=== PATIENT | female | born 1985 | race Caucasian/White ===

== ENCOUNTER 2022-06-30 10:50 | Outpatient (CLI) | payer MEDICAID, SELFPAY ==
--- OUTSIDE RECORDS SUMMARY | 2022-06-30 10:52 | XMS_ITS | Clinical Summary ---
:1985 Author Organization [facility] ian Affiliates [place] [address] Care Team Providers Name Role Phone Pcp, No Primary Care Provider Unavailable Prashanth Landers MD Unavailable Unavailable Allergies No known active allergies Medications Medication Sig Dispensed Refills Start Date End Date Status acetaminophen Take by mouth every 0 10/24/2017 Active (TYLENOL) 325 mg 4 hours if needed. tablet Max acetaminophen dose: 4000mg in 24 hrs. famotidine (PEPCID) 0 10/22/2017 Active 20 mg tablet VITAMIN B-6 25 mg 0 10/22/2017 A ctive tablet Active Problems Estimated Date of Delivery Comments Yes 03/09/2018 No additional problems on file Social History Tobacco Use Types Packs/Day Years Used Date Never Smoker Smokeless Tobacco: Never Used Tobacco Cessation: Counseling Given: Yes Alcohol Use Standard Drinks/Week Comments No 0 (1 standard drink = 0.6 oz pure alcoho l) Estimated Date of Delivery Comments Yes 03/09/2018 Sex Assigned at Date Recorded Not on file Obstetrics History Para Term AB IAB SAB Ectopic Multiple Living Live Births 6 5 5 Date Outcome GA Total Labor/2nd/3rd Weight Sex Delivery Anes PTL Monica A 1 A5 Name Clin Labor Term Term Term Term Term Current Last Filed Vital Signs Vital Sign Reading Time Taken Comments Blood Pressure 137/101 08/26/2020 7:46 PM BAKERY CHEF Pulse 90 08/26/2020 7:44 PM BAKERY CHEF Temperature 36.8 ??C (98.3 ??F) 08/26/2020 7:44 PM BAKERY CHEF Respiratory Rate 18 08/26/2020 7:44 PM BAKERY CHEF Oxygen Saturation 100% 08/26/2020 7:44 PM BAKERY CHEF Inhaled Oxygen Concentration - - Weight 94.8 kg (209 lb) 08/26/2020 7:44 PM BAKERY CHEF Height 152.4 cm (5') 08/26/2020 7:44 PM BAKERY CHEF Body Mass Index 40.82 08/26/2020 7:44 PM BAKERY CHEF Plan of Treatment Health Maintenance Due Date Last Done Comments COVID-19 vaccine series (#1) 1987 Tdap 1998 Hepatitis C screening for age 18-79 2005 Tetanus booster 2007 BMI (ht and wt on same day) for age 18+ 10/24/2018 10/24/19 18 Depression screening for age 12+ 10/24/2018 10/24/2017 Pap test for age 21-65 09/04/2020 09/04/2017, 09/04/2017 Influenza for age 9-49 06/08/2022 Results Not on filefrom Last 3 Months Insurance Payer Benefit Plan / Subscriber ID Effective Dates Phone Addre ss Type Group LAURY SCHAEFFER MA [id number] 2020-Present [address] [place] [address] [address] MONZON Merritt,Kateryna (Home) JESUS PAEZ [id number] [employer] Employer 10/08/[address] [place] (Home) DEPT [id number] [place] [phone] [facility] Naida GUPTA (Work) [place]US [place]URA [id number] Care Teams Asphalt Roller Person Relationship Specialty Start Date End Date Pcp, No PCP - General 09/01/19 . Prashanth Landers MD Family Practice 09/01/19
[2022-06-30 14:38] LABS: Chlamydia DNA Amplified* Not Detected (No Detected); GC DNA Amplified* Not Detected (No Detected)
== END 2022-06-30 10:51 | disposition home or self-care (01) ==
PROVIDERS: Visit Provider Physician Assistant
DX: Z01.419 Encounter for gynecological examination (general) (routine) without abnormal findings (principal); N89.8 Other specified noninflammatory disorders of vagina; Z12.4 Encounter for screening for malignant neoplasm of cervix; F41.9 Anxiety disorder, unspecified
CPT/HCPCS: 87491; 87591; 87624; 88175

== ENCOUNTER 2022-07-17 11:07 | Outpatient (CLI) | payer MEDICAID, SELFPAY ==
[2022-07-17 13:59] LABS: Albumin* 4.4 g/dL (3.3-5.0); Chloride* 102 mmol/L (96-114); Sodium* 137 mmol/L (135-149)
[2022-07-17 14:00] LABS: Potassium* 4.8 mmol/L (3.6-5.1)
[2022-07-17 14:02] LABS: Alanine Aminotransferase* 30 U/L (4-35); Alkaline Phosphatase* 97 U/L (40-150); Aspartate Amino Transferase* 26 U/L (12-35); Bilirubin Total* 0.3 mg/dL (0.1-1.5); Blood Urea Nitrogen* 8 mg/dL (5-24); Carbon Dioxide* 25 mmol/L (20-32); Cholesterol* 178 mg/dL (90-199); Creatinine* 0.5 mg/dL (0.5-1.5); Estimated Glomerular Filt Rate 125 ml/min; Glucose* 97 mg/dL (60-115); Total Protein* 7.5 g/dL (6.0-8.3); Triglycerides* 127 mg/dL (40-149)
[2022-07-17 14:03] LABS: Calcium* 9.2 mg/dL (8.4-10.6); HDL Cholesterol* 44 mg/dL (>=50); LDL Cholesterol Calculated 109 mg/dL (<100)
== END 2022-07-17 11:08 | disposition home or self-care (01) ==
PROVIDERS: Visit Provider Family Medicine
DX: F32.A Depression, unspecified (principal); R53.83 Other fatigue; E78.5 Hyperlipidemia, unspecified
CPT/HCPCS: 80053; 80061; 84443

== ENCOUNTER 2022-07-28 10:58 | Outpatient (CLI) | payer MEDICAID, SELFPAY ==
--- NOTE | 2022-07-28 11:00 | CRLHL7_ITS ---
For Patients: As a result of the Century Cures Act, medical imaging exams and procedure reports are released immediately into your electronic medical record. You may view this report before your referring provider. If you have questions, please contact your health care provider. INDICATION: right knee pain COMPARISON: None. TECHNIQUE: A compression venous ultrasound exam was performed of the right lower extremity using guerra-scale imaging, color Doppler and spectral Doppler analysis. FINDINGS: Sonographic imaging of the right lower extremity demonstrates normal compressibility and color Doppler venous blood flow within the common femoral vein, deep femoral vein, and the proximal greater saphenous vein. Within the thigh, the femoral vein is patent and compressible. At a lower level, the popliteal and posterior tibial veins also show normal compressibility and color Doppler venous blood flow. Limited imaging of the contralateral groin demonstrates a normal spectral waveform and color Doppler venous blood flow within the left common femoral vein. IMPRESSION: Normal venous ultrasound exam. No evidence of deep vein thrombosis within the right lower extremity. Dictated by Prashanth Jose MD @ 07/28/2022 11:44:24 AM (Electronically Signed)
--- OUTSIDE RECORDS SUMMARY | 2022-07-28 11:01 | XMS_ITS | Clinical Summary ---
:1985 Author Organization [employer] [facility] [employer] ian Affiliates Address [place] [address] Care Team Providers Name Role Phone Pcp, [...] Comments Blood Pressure 137/101 08/26/2020 7:46 PM NETWORK CONTROLLER Pulse 90 08/26/2020 7:44 PM NETWORK CONTROLLER Temperature 36.8 ??C (98.3 ??F) 08/26/2020 7:44 PM NETWORK CONTROLLER Respiratory Rate 18 08/26/2020 7:44 PM NETWORK CONTROLLER Oxygen Saturation 100% 08/26/2020 7:44 PM NETWORK CONTROLLER Inhaled Oxygen Concentration - - Weight 94.8 kg (209 lb) 08/26/2020 7:44 PM NETWORK CONTROLLER Height 152.4 cm (5') 08/26/2020 7:44 PM NETWORK CONTROLLER Body Mass Index 40.82 08/26/2020 7:44 PM NETWORK CONTROLLER Plan of Treatment Health Maintenance Due Date [...] Addre ss Type Group LAURY SCHAEFFER MA [id number] 2020-Present [address] [place] [address] [address] MONZON Merritt,Kateryna (Home) JESUS PAEZ [id number] [employer] Employer 10/08/2000 [address] [place] (Home) DEPT [id number] [place] [phone] [facility] Naida GUPTA (Work) [place]UR[place] [id number] Care Teams Cereal Maker Relationship Specialty Start Date End Date Pcp, No PCP - General 09/01/19 . Prashanth Landers MD Family Practice 09/01/19
== END 2022-07-28 10:59 | disposition home or self-care (01) ==
PROVIDERS: PCP Family Medicine; Visit Provider Family Medicine
DX: M79.604 Pain in right leg (principal)
CPT/HCPCS: 93971

== ENCOUNTER 2022-10-27 08:52 | Outpatient (CLI) | payer MEDICAID, SELFPAY | END 2022-10-27 08:53 | disposition home or self-care (01) | LOC: NFLDREF 08:54 | PROVIDERS: PCP Family Medicine; Visit Provider Family Medicine | DX: R30.0 Dysuria (principal) | CPT/HCPCS: 87086 ==

== ENCOUNTER 2022-11-14 16:22 | Emergency (ER) | payer MEDICAID, SELFPAY ==
[2022-11-14] VITALS (7 sets, daily range): BP systolic 123–144; BP diastolic 77–99; PULSE 106–112; RESP 20; TEMP 36.7; O2SAT 98–100; BMI 45.3
--- NOTE | 2022-11-14 16:51 | CRLHL7_ITS ---
For Patients: As a result of the Century Cures Act, medical imaging exams and procedure reports are released immediately into your electronic medical record. You may view this report before your referring provider. If you have questions, please contact your health care provider. INDICATION: Left abdominal pain. TECHNIQUE: CT abdomen and pelvis without contrast. COMPARISON: None. FINDINGS: Lower chest: Scattered atelectasis. Moderate hiatal hernia. Liver: Hepatomegaly/hepatic steatosis. Gallbladder and bile ducts: Cholecystectomy. Pancreas: Unremarkable. No mass or inflammation. Spleen: Normal in size. No masses. Adrenal glands: Normal in size. No nodules. Kidneys: Normal in size. No suspicious masses, stones, or hydronephrosis. GI tract: Mild colonic stool burden. Normal in caliber. No sign of mass or inflammation. Vasculature: Abdominal aorta is normal in caliber. Lymph nodes: No lymphadenopathy. Peritoneum/Abdominal Wall: Tiny fat containing umbilical hernia. Focal area of fatty necrosis adjacent to the descending colon (series 2/image 97). No free air or significant free fluid. Pelvis: Unremarkable. No pelvic masses. Bones: Unremarkable for age. IMPRESSION: Tiny focal area of fatty necrosis adjacent to the descending colon, likely suggestive of focal fat infarction, including epiploic appendagitis. Mild colonic stool burden. Hepatomegaly/hepatic steatosis. Please note that all CT scans at this facility use dose modulation, iterative reconstruction, and/or weight-based dosing when appropriate to reduce radiation dose to as low as reasonably achievable. Dictated by Faraz Smith MD @ 11/14/2022 6:14:05 PM (Electronically Signed)
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
[2022-11-14] MEDS: 0.9 % SODIUM CHLORIDE 500 ML 500 ML IV (17:17)
[2022-11-14 17:19] LABS: Basophils Absolute Auto 0.03 K/uL (0.00-0.30); Basophils Percent Auto 0.3 % (0.0-3.0); Hematocrit 40.1 % (33.0-51.0); Hemoglobin* 13.3 gm/dL (12.0-16.0); Immature Granulocytes Abs Auto 0.02 K/uL (0.00-0.30); Immature Granulocytes Pct Auto 0.2 %; Lymphocytes Percent Auto 15.2 % (20-44); Mean Corpuscular HGB Conc 33 gm/dL (32-36); Mean Corpuscular Hemoglobin 30 pg (26-34); Mean Corpuscular Volume 91 fL (80-100); Neutrophils Percent Auto 74.3 % (42.0-72.0); Platelet Count* 263 K/uL (140-440); RDW Coefficient of Variation % 12.4 % (11.5-15.5); Red Blood Count 4.43 m/uL (4.00-5.20); White Blood Count* 10.08 K/uL (4.50-11.00)
[2022-11-14] MEDS: MORPHINE 4 MG/ML INJ IVP (17:19)
[2022-11-14 17:20] LABS: Appearance Urine Clear (Clear); Bilirubin Urine Negative (Negative); Blood Urine Negative (Negative); Color Urine Yellow (Yellow); Glucose Urine Negative (Negative); Ketones Urine Negative (Negative); Leukocyte Esterase Urine Negative (Negative); Nitrite Urine Negative (Negative); Protein Urine Negative (Negative); Urobilinogen Urine 0.2 (0.2-1.0); pH Urine 5.5 (5.0-8.5)
[2022-11-14 17:21] LABS: Slide Review Reflex No
[2022-11-14 17:30] LABS: RBC Urine 0-2 (0-2); WBC Urine 0-2 (0-5)
[2022-11-14 17:32] LABS: Chloride* 105 mmol/L (96-114)
[2022-11-14 17:33] LABS: Albumin* 3.9 g/dL (3.3-5.0); Potassium* 3.9 mmol/L (3.6-5.1); Sodium* 137 mmol/L (135-149)
[2022-11-14 17:35] LABS: Amylase* 81 U/L (18-89)
[2022-11-14 17:36] LABS: Alanine Aminotransferase* 44 U/L (4-35); Alkaline Phosphatase* 86 U/L (40-150); Aspartate Amino Transferase* 26 U/L (12-35); Bilirubin Direct* 0.2 mg/dL (0.0-0.5); Bilirubin Total* 0.5 mg/dL (0.1-1.5); Blood Urea Nitrogen* 11 mg/dL (5-24); Calcium* 8.8 mg/dL (8.4-10.6); Carbon Dioxide* 28 mmol/L (20-32); Creatinine* 0.8 mg/dL (0.5-1.5); Est. Creatinine Clearance* 74.07; Estimated Glomerular Filt Rate 98 ml/min; Glucose* 100 mg/dL (60-115); Lipase* 192 U/L (23-300); Total Protein* 7.1 g/dL (6.0-8.3)
[2022-11-14 17:39] LABS: C Reactive Protein* 2.4 mg/dL (0.5-1.0)
[2022-11-14 17:48] LABS: HCG Qualitative Serum* Negative (Negative)
[2022-11-14 17:57] LABS: PCR FLU A Negative PCR FLU A (Negative); PCR FLU B Negative PCR FLU B (Negative); PCR RSV Negative PCR RSV (Negative)
[2022-11-14 18:00] LABS: SARS PCR* POSITIVE SARS-CoV-2 (Negative)
== END 2022-11-14 19:00 | disposition home or self-care (01) ==
PROVIDERS: Emergency Provider Family Medicine; PCP Family Medicine
DX: R10.12 Left upper quadrant pain (principal); U07.1 COVID-19
CPT/HCPCS: 36415; 74176; 80048; 80076; 81001; 82150; 83690; 84703; 85025; 86140; 87086; 87502; 87634; 87635; 96374; 99284; 99285; J2270; J7120

== ENCOUNTER 2023-01-04 11:13 | Outpatient (CLI) | payer MEDICAID, SELFPAY | END 2023-01-04 11:14 | disposition home or self-care (01) | PROVIDERS: PCP Family Medicine; Visit Provider Family Medicine | DX: E66.01 Morbid (severe) obesity due to excess calories (principal); F41.9 Anxiety disorder, unspecified; R53.83 Other fatigue | CPT/HCPCS: 80053; 84443 ==

== ENCOUNTER 2024-06-06 15:41 | Outpatient (CLI) | payer MEDICAID, SELFPAY ==
--- OUTSIDE RECORDS SUMMARY | 2024-06-06 15:44 | XMS_ITS | Clinical Summary ---
Author Organization [facility] Address [place], [place] [address] Care Team Providers Care Semiconductor Wafers Etcher Stripper Name Role Phone Pcp, No Primary Care Provider Unavailabl Prashanth Mayberry MD Unavailable Unavailab le Allergies No known active allergies Medications Medication Sig Dispensed Refills Start Date End Date Status acetaminophen (TYLENOL) 325 mg tablet Take by mouth every 4 hours if needed. Max acetaminophen dose: 4000mg in 24 hrs. 0 10/24/2017 Active famotidine (PEPCID) 20 mg tablet 10/22/2017 Active VITAMIN B-6 25 mg tablet 10/22/2017 Active Social History Tobacco Use Types Packs/Day Years Used Date Smoking Tobacco: Never Smokeless Tobacco: Never Tobacco Cessation:Counseling Given: Yes Alcohol Use Standard Drinks/Week Comments No 0 (1 standard drink = 0.6 oz pur e alcohol) Estimated Date of Delivery Comme nts Yes 03/09/2018 Sex and Gender Information Value Date Recorded Sex Assigned at Not on file Gender Identity Not on file Sexual Orientation Not on file Obstetrics History Para Term AB IAB SAB Ectopic Multiple Livin g Live Births 6 5 5 Date Outcome GA Total Labor Labor/2nd/3rd Weight Sex Type Anes PTL Monica A1 A5 Name Clin Term Term Term Term Term Current Last Filed Vital Signs Vital Sign Reading Time Taken Comments Blood Pressure 137/101 08/26/2020 7:46 PM SHINGLE SAWYER Pulse 90 08/26/2020 7:44 PM SHINGLE SAWYER Temperature 36.8 ??C (98.3 ??F) 08/26/2020 7:44 PM CS T Respiratory Rate 18 08/26/2020 7:44 PM SHINGLE SAWYER Oxygen Saturation 100% 08/26/2020 7:44 PM SHINGLE SAWYER Inhaled Oxygen Concentration - - Weight 94.8 kg (209 lb) 08/26/2020 7:44 PM SHINGLE SAWYER Height 152.4 cm (5') 08/26/2020 7:44 PM SHINGLE SAWYER Body Mass Index 40.82 08/26/2020 7:44 PM SHINGLE SAWYER Plan of Treatment Health Maintenance Due Date Last Done Comments Tdap 1998 HIV for age 15-65 2002 Hepatitis C screening for ag e 18-79 2005 Tetanus booster 2007 BMI (ht and wt on same day) for age 18+ 10/24/2018 10/24/2017 Depression screening for age 12+ 10/24/2018 10/24/2017 Pap test for age 21-65 09/04/2020 7, 09/04/2017 COVID-19 vaccine series (2022- season) 2023 Influenza for age 9-49 06/08/2024 Pneumococcal series for age 6-64 Aged Out No longer eligible b ased on patient's age to complete this topic Procedures Procedure Name Priority Date/Time Associated Diagnosis Comments CAPTAIN/CHECK AIRMAN THIN PREP PAP SCREEN IMAGED Routine 09/04/2017 12:00 PM SHINGLE SAWYER from Last 3 Months or Most Recently Relevant to Health Maintenance Results * CAPTAIN/CHECK AIRMAN THIN PREP PAP SCREEN IMAGED (09/04/2017 12:00 PM SHINGLE SAWYER) Case Report Gynecologic Cytology Report ? Case: [id number] ? Authorizing Provider: ??Mallory Ramos PA-C ?Collected: ? 09/04/2017 1200 ? First Screen: ?Isaias Reilly ?Received: ?09/06/2017 1244 ? Specimen: ?CAPTAIN/CHECK AIRMAN ThinPrep Vial Screening, Cervical/Vaginal ? 09/12/2017 3:38 PM [facility] INTERPRETATION/ RESULT NEGATIVE FOR INTRAEPITHELIAL LESION OR MALIGNANCY (NIL) (none) 09/12/2017 3:38 PM [facility] ENTRIL LABORATORY IMEN ADEQUACY Satisfactory for evaluation No endocervical component seen in a patient 09/12/2017 3:38 PM SHINGLE SAWYER [facility] ENTRAL LABORATORY HPV REQUEST HPV and PAP 09/12/2017 3:38 PM [facility] ENTRAL LABORATORY Date of LMP 06/12/2017 09/12/2017 3:38 PM [facility] [place] ENTRAL LABORATORY Menstrual Status 09/12/2017 3:38 PM [facility] ENTRIL LABORATORY Automated Review Successful 09/12/2017 3:38 PM [facility] ENTRAL LABORATORY Comment:Specimen processed s uccessfully by automated bilingual spanish inbound sales device, ThinPrep Imaging System, [employer] ANCILLARY TESTING CAPTAIN/CHECK AIRMAN HPV Ordered, Please see separate report 09/12/2017 3:38 PM [facility] ENTRIL LABORATORY Note The pap test is a screening technique, not a diagnostic procedure. ??It is used primarily to screen for squamous cancers and precursor lesions. ??Published studies have shown that it is subject to both false negative and false positive results. ??The pap test should not be used as the sole means to diagnose or exclude pre-malignant and malignant lesions. Interpreted at [facility] (Central Lab, [facility], [facility], , [facility], [facility], [facility]) 09/12/2017 3:38 PM [facility] ENTRIL LABORATORY Other (Cervical/Vagina l) 09/04/2017 12:00 PM SHINGLE SAWYER 09/06/2017 12:44 PM SHINGLE SAWYER Mallory Ramos PA-C PATHOLOG[facility]AL LABORATORY [address] [place] [address], [place] from Last 3 Months or Most Recently Relevant to Health Maintenance Care Teams Semiconductor Wafers Etcher Stripper Relationship Specialty Start Date End Date Pcp, No . PCP - General 09/01/19 Prashanth Landers MD . Family Practice 09/01/19
== END 2024-06-06 15:42 | disposition home or self-care (01) ==
PROVIDERS: PCP Family Medicine; Visit Provider Registered Nurse
DX: E66.01 Morbid (severe) obesity due to excess calories (principal); F32.A Depression, unspecified; F41.1 Generalized anxiety disorder
CPT/HCPCS: 80053; 84443

== ENCOUNTER 2024-07-17 10:39 | Outpatient (CLI) | payer MEDICAID, SELFPAY ==
--- OUTSIDE RECORDS SUMMARY | 2024-07-17 10:45 | XMS_ITS | Clinical Summary ---
Author Organization [facility] Address [place], [place] [address] Care Team Providers Care Investment Banking Associate Name Role Phone Pcp, No Primary Care [...] VITAMIN B-6 25 mg tablet 10/22/2017 Active Encounters Date Type Department Care Team Description 07/05/2024 Transcribe Orders [facility] [id number] [place] [id number] Tia Guerrero NP from Last 3 Months Social History Tobacco Use Types Packs/Day Years [...] Comments Blood Pressure 137/101 08/26/2020 7:46 PM ON AIR ANNOUNCER Pulse 90 08/26/2020 7:44 PM ON AIR ANNOUNCER Temperature 36.8 ??C (98.3 ??F) 08/26/2020 7:44 PM CS T Respiratory Rate 18 08/26/2020 7:44 PM ON AIR ANNOUNCER Oxygen Saturation 100% 08/26/2020 7:44 PM ON AIR ANNOUNCER Inhaled Oxygen Concentration - - Weight 94.8 kg (209 lb) 08/26/2020 7:44 PM ON AIR ANNOUNCER Height 152.4 cm (5') 08/26/2020 7:44 PM ON AIR ANNOUNCER Body Mass Index 40.82 08/26/2020 7:44 PM ON AIR ANNOUNCER Plan of Treatment Health Maintenance Due Date Last Done Comments Tdap 1998 HIV for age 15-65 2002 Hepatitis C screening for ag e 18-79 2005 Tetanus booster 2007 BMI (ht and wt on same day) for age 18+ 10/24/2018 10/24/2017 Depression screening for age 12+ 10/24/2018 10/24/2017 Pap test for age 21-65 09/04/2020 7, 09/04/2017 COVID-19 vaccine series (2023- season) 2024 Influenza for age 9-49 06/08/2024 RSV vaccine for adults or (1 - 1-dose 75+ series) 2062 Pneumococcal series for age 6-64 Aged Out No longer eligible b ased on patient's age to complete this topic Procedures Procedure Name Priority Date/Time Associated Diagnosis Comments [employer] THIN PREP PAP SCREEN IMAGED Routine 09/04/2017 12:00 PM ON AIR ANNOUNCER from Last 3 Months or Most Recently Relevant to Health Maintenance Results * [employer] THIN PREP PAP SCREEN IMAGED (09/04/2017 12:00 PM ON AIR ANNOUNCER) Case Report Gynecologic Cytology Report ? Case: [id number] ? Authorizing Provider: ??Mallory Ramos PA-C ?Collected: ? 09/04/2017 1200 ? First Screen: ?Isaias Reilly ?Received: ?09/06/2017 1244 ? Specimen: ?[employer] ThinPrep Vial Screening, Cervical/Vaginal ? 09/12/2017 3:38 PM [facility] INTERPRETATION/ RESULT NEGATIVE FOR INTRAEPITHELIAL LESION OR MALIGNANCY (NIL) (none) 09/12/2017 3:38 PM [facility] IMEN ADEQUACY Satisfactory for evaluation No endocervical component seen in a patient 09/12/2017 3:38 PM [facility] HPV REQUEST HPV and PAP 09/12/2017 3:38 PM [facility] Date of LMP 06/12/2017 09/12/2017 3:38 PM [facility] Menstrual Status 09/12/2017 3:38 PM [facility] Automated Review Successful 09/12/2017 3:38 PM [facility] Comment:Specimen processed s uccessfully by automated focuser device, ThinPrep Imaging System, [employer] ANCILLARY TESTING [employer] HPV Ordered, Please see separate report 09/12/2017 3:38 PM [facility] Note The pap test is a screening technique, not a diagnostic procedure. ??It is used primarily to screen for squamous cancers and precursor lesions. ??Published studies have shown that it is subject to both false negative and false positive results. ??The pap test should not be used as the sole means to diagnose or exclude pre-malignant and malignant lesions. Interpreted at [facility] ([facility], [facility], [facility], [facility], [facility], [facility], [facility]) 09/12/2017 3:38 PM [facility] Other (Cervical/Vagina l) 09/04/2017 12:00 PM ON AIR ANNOUNCER 09/06/2017 12:44 PM ON AIR ANNOUNCER January Rachel CLANCY PATHOLOGY/CYTOLOGY [facility] [address] [place] [address], from Last 3 Months or Most Recently Relevant to Health Maintenance Care Teams Investment Banking Associate Relationship Specialty Start Date End Date Pcp, No . PCP - General 09/01/19 Prashanth Landers MD . Family Practice 09/01/19
[2024-07-17 14:38] LABS: Chlamydia DNA Amplified* NOT DETECTED (No Detected); GC DNA Amplified* NOT DETECTED (No Detected)
[2024-07-19 05:17] LABS: HPV Source Cervix; HPV, High Risk by TMA Detected
[2024-07-20 15:02] LABS: HPV Genotype 16 by TMA Not Detected; HPV Genotype 18/45 by TMA Not Detected; HPV Reflex Billing Y; HPVG Source Cervix
== END 2024-07-17 10:40 | disposition home or self-care (01) ==
PROVIDERS: Visit Provider Physician Assistant
DX: N92.6 Irregular menstruation, unspecified (principal); Z12.4 Encounter for screening for malignant neoplasm of cervix; Z11.3 Encounter for screening for infections with a predominantly sexual mode of transmission; Z13.220 Encounter for screening for lipoid disorders; Z13.1 Encounter for screening for diabetes mellitus; Z11.4 Encounter for screening for human immunodeficiency virus [HIV]; Z11.59 Encounter for screening for other viral diseases
CPT/HCPCS: 80061; 82947; 84146; 84443; 86592; 86703; 86803; 87340; 87491; 87591; 87624; 87625; 88141; 88142

== ENCOUNTER 2024-09-01 10:54 | Outpatient (CLI) | payer MEDICAID, SELFPAY | END 2024-09-01 10:55 | disposition home or self-care (01) | PROVIDERS: PCP Registered Nurse; Visit Provider Registered Nurse | DX: I10 Essential (primary) hypertension (principal); E66.01 Morbid (severe) obesity due to excess calories | CPT/HCPCS: 80048 ==

== ENCOUNTER 2025-05-29 11:50 | Emergency (ER) | payer MEDICAID, SELFPAY ==
--- OUTSIDE RECORDS SUMMARY | 2025-05-29 11:53 | XMS_ITS | Clinical Summary ---
Author Organization [facility] Address [address] [place] [address] Care Team Providers Care Civil Engineer In Training Name Role Phone Pcp, No Primary Care Provider Unavailabl Prashanth Mayberry MD Unavailable Unavailab le Allergies No known active allergies Medications acetaminophen (TYLENOL) 325 mg tablet Take by mouth every 4 hours if needed. Max acetaminophen dose: 4000mg in 24 hrs. 0 8 Active famotidine (PEPCID) 20 mg tablet 8 Active VITAMIN B-6 25 mg tablet 8 Active DULoxetine (CYMBALTA) 30 mg Delayed-releas e capsule Take by mouth. 4 Active hydrOXYzine HCL (ATARAX) 25 mg tablet Take by mouth. 4 Active Social History Tobacco Use Types Packs/Day Years Used Date Smoking Tobacco: Never Smokeless Tobacco: Never Tobacco Cessation:Counseling Given: Yes Alcohol Use Standard Drinks/Week Comments No 0 (1 standard drink = 0.6 oz pur e alcohol) Comments No Sex and Gender Information Value Date Recorded Sex Assigned at Not on file Legal Sex Female 1:17 PM MEDICATION MANAGER Gender Identity Not on file Sexual Orientation Not on file Obstetrics History Para Term AB IAB SAB Ectopic Multiple Livin g Live Births 8 7 7 Date Outcome GA Total Labor Labor/2nd/3rd Weight Sex Type Anes PTL Monica A1 A5 Name Clin Term Term Term Term Term Term Term Last Filed Vital Signs Vital Sign Reading Time Taken Comments Blood Pressure 128/82 09/02/2024 10:17 AM MEDICATION MANAGER Pulse 64 09/02/2024 10:17 AM MEDICATION MANAGER Temperature 36.8 C (98.3 F) 08/26/2020 7:44 PM MEDICATION MANAGER Respiratory Rate 16 09/02/2024 10:1 7 AM MEDICATION MANAGER Oxygen Saturation 100% 08/26/2020 7:44 PM MEDICATION MANAGER Inhaled Oxygen Concentration - - Weight 111.6 kg (246 lb 1.6 oz) 024 10:17 AM MEDICATION MANAGER Height 154.9 cm (5' 1) 09/02/2024 10:1 7 AM MEDICATION MANAGER Body Mass Index 46.5 09/02/2024 10:17 AM MEDICATION MANAGER Plan of Treatment Scheduled Procedures Name Priority Associated Diagnoses Date/Ti me SURGICAL PROCEDURE (TYPE PRO CEDURE DESCRIPTION BELOW) Elective Macromastia Health Maintenance Due Date Last Done Comments Tetanus booster 1998 HIV for age 15-65 2002 Hepatitis C screening for age 18-79 2005 Hepatitis B series for 19+ (1 of 3 - 19+ 3-dose series) 2006 Depression screening for age 12+ 10/24/2018 10/24/2017 COVID-19 vaccine series ( season) 2024 Influenza Vaccine (#1) 2025 Pap test for age 21-65 06/30/2025 , 06/30/2022, 09/04/2017, Additional history exists BMI (ht and wt on same day) for age 18+ 09/02/2025 09/02/2024, 10/24/2017 Pneumococcal series for age 6-49 Aged Out No longer eligible based on patient's age to complete this topic Procedures Procedure Name Priority Date/Time Associated Diagnosis Comments HPV HIGH RISK Routine 06/30/2022 11:00 AM CDT from Last 3 Months or Most Recently Relevant to Health Maintenance Results * (ABNORMAL) HPV HIGH RISK (06/30/2022 11:00 AM CDT) TYPE 16 Negative Negative 07/04/2022 5:45 PM CDT [facility] TYPE 18 Negative Negative 07/04/2022 5:45 PM CDT [facility] OTHER HIGH RISK TYPES Positive(A) Negative 07/04/2022 5:45 PM CDT [facility] Other (Cervical) 06/30/2022 11:00 AM CDT 07/03/2022 8:24 AM CDT Narrative [facility] - 07/04/2022 5:45 PM CDT Specimen is positive for the DNA of any one of, or combination of, the following high risk HPV types: 31, 33, 35, 39, 45, 51, 52, 56, 58, 59, 66, 68. HPV types 16 and 18 DNA were undetectable or below the pre-set threshold. Methodology: [employer] Zafar 4800 HPV Test january Rachel CLANCY MICROBIOLOGY Final Resu lt [facility] [address] [place] [address], from Last 3 Months or Most Recently Relevant to Health Maintenance Insurance [facility] ATTN: [place] [address] Care Teams Civil Engineer In Training Relationship Specialty Start Date End Date Pcp, No . PCP - General 09/01/19 Prashanth Landers MD . Family Practice 09/01/19
[2025-05-29 12:13] VITALS: BP 149/96; PULSE 81; RESP 20; TEMP 36.6; O2SAT 97; BMI 48.2
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
[2025-05-29 12:31] VITALS: BP 139/91; PULSE 81; RESP 20; TEMP 36.6; O2SAT 97
[2025-05-29 13:27] LABS: Hematocrit 39.8 % (33.0-51.0); Hemoglobin* 13.1 gm/dL (12.0-16.0); Immature Granulocytes Abs Auto 0.01 K/uL (0.00-0.30); Immature Granulocytes Pct Auto 0.1 %; Lymphocytes Absolute Auto 2.58 K/uL (0.90-2.90); Mean Corpuscular HGB Conc 33 gm/dL (32-36); Mean Corpuscular Hemoglobin 29 pg (26-34); Mean Corpuscular Volume 89 fL (80-100); RDW Coefficient of Variation % 12.4 % (11.5-15.5); Red Blood Count 4.45 m/uL (4.00-5.20); White Blood Count* 10.04 K/uL (4.50-11.00)
[2025-05-29 13:29] LABS: Slide Review Reflex No
[2025-05-29 13:34] LABS: Troponin, Point-of-Care* 0.00 ng/ml (0.01-0.04)
[2025-05-29 13:41] LABS: Albumin* 4.1 g/dL (3.3-5.0); Chloride* 101 mmol/L (96-114); Sodium* 136 mmol/L (135-149)
[2025-05-29 13:42] LABS: Potassium* 3.7 mmol/L (3.6-5.1)
[2025-05-29 13:44] LABS: Blood Urea Nitrogen* 5 mg/dL (5-24); Creatinine* 0.5 mg/dL (0.5-1.5); Est. Creatinine Clearance* 115.12; Estimated Glomerular Filt Rate 123 ml/min
[2025-05-29 13:45] LABS: Alanine Aminotransferase* 74 U/L (4-35); Alkaline Phosphatase* 78 U/L (40-150); Anion Gap 6 mEq/L (7-15); Aspartate Amino Transferase* 53 U/L (12-35); Bilirubin Direct* 0.2 mg/dL (0.0-0.5); Bilirubin Total* 0.4 mg/dL (0.1-1.5); Calcium* 9.3 mg/dL (8.4-10.6); Carbon Dioxide* 29 mmol/L (20-32); Glucose* 85 mg/dL (60-115); Total Protein* 7.5 g/dL (6.0-8.3)
[2025-05-29 14:00] VITALS: BP 147/80; PULSE 76; RESP 20; O2SAT 97
[2025-05-29 14:57] VITALS: BP 177/80; PULSE 72; RESP 18; TEMP 36.7
== END 2025-05-29 14:58 | disposition home or self-care (01) ==
PROVIDERS: Emergency Provider Family Medicine; PCP Family Medicine
DX: R07.89 Other chest pain (principal); K59.00 Constipation, unspecified; M54.9 Dorsalgia, unspecified; F41.9 Anxiety disorder, unspecified
CPT/HCPCS: 36415; 80048; 80076; 84484; 85025; 86140; 99284

== ENCOUNTER 2025-07-24 14:54 | Outpatient (CLI) | payer MEDICAID, SELFPAY ==
[2025-07-28 13:45] LABS: HPV Source Cervix
[2025-07-28 18:58] LABS: Pap Test Digital Imaging Done
== END 2025-07-24 14:55 | disposition home or self-care (01) ==
PROVIDERS: PCP Family Medicine; Visit Provider Obstetrics & Gynecology
DX: Z12.4 Encounter for screening for malignant neoplasm of cervix (principal); N90.89 Other specified noninflammatory disorders of vulva and perineum; B07.9 Viral wart, unspecified; N91.5 Oligomenorrhea, unspecified
CPT/HCPCS: 80061; 83002; 83498; 84146; 84270; 84402; 84403; 84443; 87624; 87625; 88141; 88142; 88175

== ENCOUNTER 2025-08-17 10:54 | Day surgery (SDC) | payer MEDICAID, SELFPAY ==
[2025-08-17] VITALS (11 sets, daily range): BP systolic 133–180; BP diastolic 80–96; PULSE 70–92; RESP 16; TEMP 37.1–37.3; O2SAT 96–100; BMI 46.6
[2025-08-17] MEDS: LIDOCAINE 1% MDV INJECTION (10:48)
[2025-08-17] MEDS: BUPIVACAINE 0.5% 30 ML INJECTION (10:48)
[2025-08-17] MEDS: ETHYL CHLORIDE 1 APPLICATION 1 APPLIC TOPICAL (11:48)
[2025-08-17] MEDS: NEOMYCIN/BACITRACIN/POLYMYXIN B 1 APPLIC TOPICAL (13:03)
--- NOTE | 2025-08-17 13:10 | P.ORPRC_ITS ---
Procedure Note Date of procedure: 08/17/25 Procedure: PREOPERATIVE DIAGNOSIS: 1. Right ring finger ulnar-sided middle phalangeal mass, suspect benign POSTOPERATIVE DIAGNOSIS: 1. Right ring finger ulnar-sided middle phalangeal mass, suspect benign PROCEDURE: 1. Right ring finger ulnar-sided middle phalangeal mass open excision, suspect benign (0.8 x 0.8 x 1.0 cm) SURGEON: Patel Arredondo MD. [employer] SUPERVISOR: BÁRBARA Kowalski - Of note, an supply chain assistant was critical for this case to aid in patient positioning, tissue retraction, limb manipulation/positioning, and closure. ANESTHESIA: Local anesthetic (50:50 mixture of 2% lidocaine plain and 0.5% marcaine plain) IMPLANTS: None TOURNIQUET: 10 minutes of digital tourni-cot COMPLICATIONS: None evident INDICATIONS: The patient is a pleasant 32-year-old female who has experienced right ring finger ulnar-sided middle phalangeal mass with increasing recent pain. Nonoperative management has been tried but unsuccessful. Given the failure of nonoperative management, and how this affects daily life, surgery was recommended. DESCRIPTION OF PROCEDURE: Following a thorough discussion of risks, benefits, and alternatives consent was obtained and the operative extremity was marked. The patient was brought to the operating room and placed supine on the operating table. No antibiotics were administered as this was planned to be a local case only. Proper time-out was performed identifying proper patient, site, and procedure. The operative extremity was prepped and draped in the appropriate sterile fashion using ChloraPrep. The limb was exsanguinated and the tourniquet inflated. An mid axial ulnar sided incision was made on the ring finger middle phalanx. Sharp incision through the skin, and blunt dissection through subcutaneous tissue allowed us to protect crossing neurologic structures. The mass was encountered in the SQ layer and was excised with blunt release of the surrounding soft tissue adhesions. It did seem to be in the vicinity of the ulnar digital nerve, but I do not see a clearly connected to the nerve. At this stage, the tourniquet was released and hemostasis achieved. Closure was performed with 4-O nylon. Soft dressings were applied, and the patient was awoken/transferred to the recovery room in stable condition. PLAN: 1. Encourage elevation of the operative extremity. 2. Range of motion of the operative extremity/digits as tolerated. 3. Ibuprofen, acetaminophen and/or oxycodone as needed for pain. 4. Follow up with PA visit in 12-16 days for wound check and suture removal.
[2025-08-17] MEDS: ACETAMINOPHEN 500 MG TABLET PO (13:25)
[2025-08-17] MEDS: IBUPROFEN 200 MG TABLET 600 MG PO (13:25)
== END 2025-08-17 13:40 | disposition home or self-care (01) ==
LOC: OR 10:58
PROVIDERS: PCP Family Medicine; Visit Provider Orthopaedic Surgery Sports Medicine
PROC: (CPT 26111; principal; 2025-08-17 12:45)
DX: D17.39 Benign lipomatous neoplasm of skin and subcutaneous tissue of other sites (principal)
CPT/HCPCS: 26111; J2003; T1013; A9270; J0665